=== PATIENT | female | born 1950 | race Caucasian/White ===

== ENCOUNTER → 2023-04-26 11:23 | Outpatient (REF) | payer OTHER, SELFPAY | LOC: WDC 11:23 | PROVIDERS: ATTENDING PHYSICIAN Internal Medicine | DX: Z12.31 Encounter for screening mammogram for malignant neoplasm of breast (principal) | CPT/HCPCS: 77063; 77067 ==

== ENCOUNTER → 2023-05-01 12:06 | Outpatient (REF) | payer OTHER, SELFPAY ==
[2023-05-01 13:04] VITALS: BP 136/69; BP_SYST 70
== END ==
LOC: RADI 12:06
PROVIDERS: ATTENDING PHYSICIAN Internal Medicine Endocrinology, Diabetes & Metabolism
DX: Q89.2 Congenital malformations of other endocrine glands (principal)
CPT/HCPCS: 88173; 10005

== ENCOUNTER → 2023-05-28 06:19 | Day surgery (SDC) | payer OTHER, SELFPAY ==
[2023-05-28 07:27] LABS: Glucose - Point of Care 127 mg/dl (70-99)
== END ==
LOC: GI 06:19
PROVIDERS: ATTENDING PHYSICIAN Internal Medicine Gastroenterology
DX: Z12.11 Encounter for screening for malignant neoplasm of colon (principal); Z86.010 Personal history of colon polyps; K64.8 Other hemorrhoids; K57.30 Diverticulosis of large intestine without perforation or abscess without bleeding
CPT/HCPCS: G0105; 82962

== ENCOUNTER → 2023-06-03 12:26 | Outpatient (REF) | payer OTHER, SELFPAY | LOC: HWRAD 12:26 | PROVIDERS: ATTENDING PHYSICIAN Internal Medicine Endocrinology, Diabetes & Metabolism; FAMILY PHYSICIAN Internal Medicine | DX: M81.0 Age-related osteoporosis without current pathological fracture (principal) | CPT/HCPCS: 77080 ==

== ENCOUNTER 2023-06-19 19:39 | Observation (INO) | payer OTHER, SELFPAY ==
[2023-06-19] VITALS (17 sets, daily range): BP systolic 128–172; BP diastolic 75–105; BMI 29.9; BMI 29.2
[2023-06-19 16:39] LABS: Glucose - Point of Care 205 mg/dl (70-99)
--- NOTE | 2023-06-19 16:50 | ED.CVA ---
History of Present Illness
General
Chief Complaint: CVA/TIA Symptoms
Source: patient
Exam Limitations: none
Time Seen by Provider: 06/19/23 16:50
Nursing documentation reviewed up to this point in time: agreed with
Onset of Stroke Symptoms
Onset of symptoms known: Yes
Date of onset of symptoms: 06/18/23
Travel History
Have you had any contact with someone who has COVID-19?: No
Do you have any symptoms of coronavirus? Fever > 100 degrees, chills, cough, shortness of breath, sore throat, loss of taste or smell, muscle aches, or headache?: No
History of Present Illness
History of Present Illness:
72 old female presents the emergency department complaining of double vision that occurred last night, difficulty speaking. She saw her neurologist, Dr. Tang.
Past History
Past History
ED Past Medical History: CVA, HTN, Hypercholesterolemia and Hypothyroidism
ED Past Surgical History: Orthopedic
Social History
Tobacco: Non-smoker
Alcohol: None
Drug: None
Personal:
Living: with family
Review of Systems
Review of Systems
Allergies reviewed?: Yes
All Other Systems: Not applicable
Constitutional: Reports no symptoms
EENT: Reports no symptoms
Respiratory: Reports no symptoms
Cardiac: Reports no symptoms
ABD/GI: Reports no symptoms
: Reports no symptoms
Musculoskeletal: Reports no symptoms
Skin: Reports no symptoms
Neurological: Reports other (Double vision, dysarthria)
Endocrine: Reports no symptoms
Hematologic/Lymphatic: Reports no symptoms
Psychiatric: Reports no symptoms
Phy Exam
Physical Exam
Physical Exam:
Physical Exam
General: no apparent distress, not acutely ill
Neck: supple. no meningeal signs. normal posterior pharynx
Heart: s1/s2 regular rate and rhythm, no murmur. equal radial
pulses.
HEENT: Pupils equal round reactive to light, EOMI
Lungs: no acute respiratory distress. clear bilaterally
Abdomen: normal bowel sounds. not tender. no CVAT
Neuro: alert and oriented. no focal neurological deficits cranial nerves II through XII intact
Skin: no rash
Psychiatric: well kept. interactive and cooperative
Extremities: no edema. no calf tenderness. negative homans. good distal pulses
Scores
NIH Stroke Score
Level of Consciousness: 0 - Alert
LOC Questions: 0-Answers both correctly
LOC Commands: 0-Performs both correctly
Best Horizontal Gaze: 0-Normal
Visual Khan: 0=Normal, no visual loss
Facial Palsy: 0=Normal, symmetrical
Motor - Right Arm: 0=No drift 10 seconds
Motor - Left Arm: 0=No drift 10 seconds
Motor - Right Le-No drift 5 seconds
Motor - Left Le-No drift 5 seconds
Limb Ataxia: 0-Absent
Sensation: 0-Normal
Best Language: 0-No aphasia
Dysarthria: 0-Normal
Extinction and Inattention: 0-No abnormality
Total Score:: 0
Course
Orders/Labs/Results
Orders:
Orders
06/19/23 16:47
Electrocardiogram (*1) Urgent
Reason for Study: Chest Pain
CT Head W/o Iv Contrast Urgent
Comment:
Reason For Exam: slurred speech
EKG- Treatment ONCE
06/19/23 16:49
Complete Blood Count/With Diff Urgent
Comprehensive Metabolic Panel Urgent
Prothrombin Time Urgent
Troponin I Urgent
06/19/23 18:33
Urinalysis Reflex To Culture Urgent
Date Specimen was Collected: 06/19/23
Time Specimen was Collected: 18:37
Aspirin Chewable [Low Strength Aspirin] 81 mg PO NOW STA
Abnormal Lab Results
0306/19/23 06/19/23
16:38 16:49 16:51
WBC 13.1 H 10^3/uL
(4.8-10.8)
Abs Immat Gran (auto) 0.1 H 10^3/uL
(0-0.05)
Absolute Neuts (auto) 10.0 H 10^3/uL
(1.4-6.5)
Absolute Monos (auto) 0.7 H 10^3/uL
(0.1-0.6)
Neutrophils % 76.7 H %
(42.2-75.2)
Lymphocytes % 16.7 L %
(20.5-51.1)
Sodium 134 L mmol/L
(135-145)
Carbon Dioxide 20 L mmol/L
(22-30)
Glucose 193 H mg/dl
(70-99)
POC Glucose 205 H mg/dl 201 H mg/dl
(70-99) (70-99)
06/19/23 16:49
06/19/23 16:49
Vital Signs
Initial and Last Documented VS:
Initial Vital Signs
Temp Pulse Resp BP Pulse Ox
98.0 F 91 14 172/105 95
06/19/23 16:34 06/19/23 16:34 06/19/23 16:34 06/19/23 16:34 06/19/23 16:34
Last Documented Vital Signs
Temp Pulse Resp BP Pulse Ox
98.0 F 79 16 138/77 97
06/19/23 16:34 06/19/23 19:00 06/19/23 19:00 06/19/23 19:00 06/19/23 19:00
MDM/Problems Addressed
Differential Diagnosis Includes:
Intracranial hemorrhage, TIA, CVA
MDM/Problems Addressed:
72-year-old female with dysarthria, resolved. Double vision, resolved. Suspect TIA. Admit to hospitalist. TNK not indicated.
Chronic conditions affecting care: HTN and Arrhythmia
Acute Exacerbation and/or Progression of Chronic Illness: HTN and Arrhythmia
*Radiology
Radiology exam reviewed: radiology read reviewed (CT head no acute findings)
*Pulse Oximetry
Patient hypoxic: no
*EKG
Interpreted by ED Provider?: Yes
EKG Intrepretation Date: 06/19/23
EKG Intrepretation Time: 16:50
Interpretation: abnormal
Comparison EKG: no comparison EKG present
Heart Rate: 86
Rate: normal
Rhythm: sinus
[place]: normal axis
Interval: normal interval
QRS Pattern: normal QRS
Ischemia: non-specific ST changes
*Processor Inspector Interpretation
Rate: normal
Interpretation: normal
Heart Rate: 84
Rhythm: sinus
*Critical Care Note
Total Time (30-74mins, 75-104mins- exclusive of procedures): Not Applicable
Data Reviewed
Prescriptions/Medications Considered But Not Given:
TNK not indicated
Patient Management
Social determinants of health affecting care: Living situation
Discussion with other providers: Hospitalist and Band Maker (Neurology, Dr. Painter)
Escalation/DeEscalation of care consider admission/obs:
Admit indicated
ED Attending Note
-
Portions of this chart may have been created with voice recognition software.� Occasional wrong word or��sound alike� substitutions may have occurred due to the inherent limitations of voice recognition software.
Discharge Plan
Departure
Patient Disposition: Admit
Date of Disposition: 06/19/23
Time of Disposition: 18:02
Admit to: Telemetry
Presentation/result/management discussed w/ accepting MD/DO: Hospitalist
Patient with high blood pressure during this ER visit?: Yes
Condition: Good
Discharge Problem:
TIA (transient ischemic attack)
Prescriptions:
No Action
Prolia 60 MG/ML syringe
60 mg SQ [id number]
Patient Comments:
06/19/2023, last dose was in March per pt.
atorvastatin 40 mg Tablet
40 mg PO DAILY
loperamide [Imodium] 2 mg Capsule
4 mg PO HSPRN PRN (Reason: diarrhea)
sulfamethoxazole-trimethoprim 800-160 mg Tablet
1 tab PO BID
Patient Comments:
06/19/2023, pt. filled this med on 06/17/2023 and is instructed to take one tablet BID for 8 days.
valsartan-hydrochlorothiazide 80-12.5 mg Tablet
1 tab PO DAILY
erythromycin 5 mg/gram (0.5 %) Ointment
1 applic LEFT EYE QID
Patient Comments:
06/19/2023, pt. filled this med. on 06/12/2023 and is instructed to apply to left eye QID for 7 days.
clobetasol 0.05 % Solution
1 applic TOPICAL BID PRN (Reason: skin condition)
escitalopram oxalate 10 mg Tablet
20 mg PO DAILY
bupropion HCl 150 mg Tablet Extended Release 24 Hr
450 mg PO DAILY
pregabalin 150 mg Capsule
150 mg PO BID
cholecalciferol (vitamin D3) 50 mcg (2,000 unit) Tablet
50 mcg PO DAILY
Centrum Silver 400-250 mcg Tablet,Chewable
4 tab PO QPM
Jardiance 25 mg Tablet
25 mg PO DAILY
clopidogrel 75 MG tablet
75 mg PO DAILY
pantoprazole 40 MG tablet,delayed release (DR/EC)
40 mg PO DAILY
levothyroxine 125 MCG tablet
125 mcg PO DAILY
Interventions
Interventions:
*Risk Screen - Suicide Last Done: 06/19/23 16:35
*General Assessment Last Done: 06/19/23 16:35
*Neglect/Abuse Screening Last Done: 06/19/23 16:35
*ED COVID-19 Vaccine History Last Done: 06/19/23 16:50
ED- Cardiac Assessment Last Done: 06/19/23 16:51
ED- Neurological Assessment Last Done: 06/19/23 16:35
ED- Pulmonary Assessment Last Done: 06/19/23 16:51
ED Swallowing Screen Last Done: 06/19/23 16:51
Discharge Date and Time
Print Language: SWEDISH
[2023-06-19 16:53] LABS: Glucose - Point of Care 201 mg/dl (70-99)
[2023-06-19 17:07] LABS: % Basophils 0.6 % (0-2); % Eosinophils 0.6 % (0-6); % Immature Granulocytes 0.4 % (0-0.5); % Lymphocytes 16.7 % (20.5-51.1); % Neutrophils 76.7 % (42.2-75.2); Absolute Basophils 0.1 10^3/uL (0-0.2); Absolute Eosinophils 0.1 10^3/uL (0-0.7); Absolute Immature Granulocytes 0.1 10^3/uL (0-0.05); Absolute Lymphocytes 2.2 10^3/uL (1.2-3.4); Absolute Monocytes 0.7 10^3/uL (0.1-0.6); Hematocrit 42.8 % (37.0-47.0); Hemoglobin 15.3 g/dL (12.0-16.0); Mean Corp Hgb Conc. 35.7 g/dL (33.0-37.0); Mean Corpuscular Hgb 29.3 pg (27.0-31.0); Mean Platelet Volume 9.7 fL (7.4-10.4); Nucleated Red Blood Cells % 0 %; Platelet Count 376 10^3/uL (130-400); Red Blood Cell Count 5.22 10^6/uL (4.20-5.40); Red Cell Dist. Width 13.5 % (11.5-14.5); White Blood Cell Count 13.1 10^3/uL (4.8-10.8)
[2023-06-19 17:16] LABS: INR 1.04; PT 13.6 Sec (11.4-14.6)
[2023-06-19 17:26] LABS: ALT (SGPT) 26 U/L (0-35); AST (SGOT) 32 U/L (14-36); Albumin 4.7 g/dl (3.5-5.0); Alkaline Phosphatase 69 U/L (38-126); Blood Urea Nitrogen 14 mg/dl (7-17); Calcium 10.1 mg/dl (8.4-10.2); Carbon Dioxide 20 mmol/L (22-30); Chloride 102 mmol/L (98-107); Estimated Creatinine Clearance 71 ml/min; Glucose 193 mg/dl (70-99); Potassium 3.8 mmol/L (3.5-5.1); Sodium 134 mmol/L (135-145); Total Bilirubin 0.7 mg/dl (0.2-1.3); Total Protein 7.7 g/dl (6.3-8.2); eGFR > 60.00
[2023-06-19 17:29] LABS: Troponin I < 0.012 ng/ml
[2023-06-19] MEDS: LOW STRENGTH ASPIRIN 81 MG PO (18:39)
--- NOTE | 2023-06-19 18:39 | W.PN.UPDATE ---
Update Note
Progress Note Update
This note serves as an addendum to the H&P by Ade Farr on 06/18.
72 yo f w/ pmhx of prior left tempo-parietal cva, hx pfo repair, on Plavix, HTN, HLD, Hypothyroidism, presenting for intermittent dysarthria since last night. Also with diplopia. Patient had mild URI symptoms since colonoscopy a few weeks ago. UTI
symptoms last week started on abx with no symptoms at this time. Sent in by Dr. Tang. Blood pressure 154/83, RR 11, pulse 83, afebrile. �White count 13.1, sodium 134, head CT with 3 cm infarct in the left temporoparietal junction, mild to
moderate diffuse cortical and cerebral atrophy.� Plan�PT/OT/ST, MRI/MRA brain.� Neuro consult.� echo with bubble study.� May need JORGE L.� Hemoglobin A1c, LDL, increase statin to Crestor if LDL is not in goal.� Permissive hypertension. UA to rule out
UTI
--- NOTE | 2023-06-19 19:15 | HPS.HSE ---
Family Physician
-
Family Physician: Radha Nesbitt
Chief Complaint
-
Double Vision and Slurred Speech
History of Present Illness
Patient is a 72-year-old female past medical history of prior left temporal parietal CVA, PFO s/p ASD closure, hypertension, hyperlipidemia and diabetes who presents with double vision and slurred speech. Patient reports she woke this morning and
noticed double vision it. She attributed this initially to a recent 'eye infection'. She saw her physician today who noted her blood pressure to be elevated and her speech to be slurred and she was sent to the emergency department for evaluation.
She denies any focal numbness, tingling or weakness. Patient also reports she started with a urinary tract infection about a week ago. She initially was on ciprofloxacin, and then transition to Bactrim. She notes since changing antibiotics her
symptoms have improved.
Medical History
Past Medical History
Past Medical History: Reports Other
Additional Past Medical History:
Left Temporoparietal CVA
PFO s/p ASD Closure
Essential Hypertension
Hyperlipidemia
Diabetes Mellitus
Hypothyroidism
Depression
GERD
Past Surgical History: Reports Other
Additional Past Surgical History:
Gastric Bypass
Abdominoplasty
Mammoplasty
Shoulder Surgery
Left Total Knee Replacement
Left Femur Fracture Repair
Social History
Tobacco: Non-smoker
Alcohol: Occasional
Family History
Family History: Not pertinent
Allergies / Home Medications
Allergies reflects when Allergies were last updated in [facility].
Home Medications with original date entered in [facility]
Allergy/Medication List:
Allergies
Allergy/AdvReac Type Severity Reaction Status Date / Time
adhesive tape Allergy Rash Verified 04/30/23 13:50
Home Medications
clopidogrel 75 mg tablet 75 mg PO DAILY 05/10/18
levothyroxine 125 mcg tablet 125 mcg PO DAILY 05/10/18
pantoprazole 40 mg tablet,delayed release 40 mg PO DAILY 05/10/18
denosumab 60 mg/mL subcutaneous syringe (Prolia) 60 mg SQ [id number] 04/18/20
atorvastatin 40 mg tablet 40 mg PO DAILY 06/19/23
bupropion HCl 150 mg 24 hr tablet, extended release 450 mg PO DAILY 06/19/23
cholecalciferol (vitamin D3) 50 mcg (2,000 unit) tablet 50 mcg PO DAILY 06/19/23
clobetasol 0.05 % scalp solution 1 applic topical BID PRN skin condition 06/19/23
empagliflozin 25 mg tablet (Jardiance) 25 mg PO DAILY 06/19/23
erythromycin 5 mg/gram (0.5 %) eye ointment 1 applic LEFT EYE QID 06/19/23
escitalopram oxalate 10 mg tablet 20 mg PO DAILY 06/19/23
loperamide 2 mg capsule 4 mg PO HSPRN PRN diarrhea 06/19/23
multivit with min-folic acid-lutein 400 mcg-250 mcg chewable tablet (Centrum Silver) 4 tab PO QPM 06/19/23
pregabalin 150 mg capsule 150 mg PO BID 06/19/23
sulfamethoxazole 800 mg-trimethoprim 160 mg tablet 1 tab PO BID 06/19/23
valsartan 80 mg-hydrochlorothiazide 12.5 mg tablet 1 tab PO DAILY 06/19/23
Review of Systems
-
A 12 point ROS was completed and negative except as noted: Yes
Constitutional: Denies Fever or Chills
Respiratory: Denies Cough or Trouble Breathing
Cardiac: Denies Chest Pain or Palpitations
Abdomen/GI: Denies Abdominal Pain, Nausea, Vomiting or Diarrhea
Physical Exam
Vital Signs
Vital Signs
Temp Pulse Resp BP Pulse Ox
98.0 F 79 16 138/77 97
06/19/23 16:34 06/19/23 19:00 06/19/23 19:00 06/19/23 19:00 06/19/23 19:00
Physical Exam
General: Comfortable and Conversant
HEENT: Anicteric and Moist mucous membranes
Respiratory: Clear and Non Labored Respirations
Cardiac: S1/S2 and Regular Rhythm
GI: Soft and Non Tender
Rectal: Deferred by Provider
Skin: Warm and Dry
Neuro: Awake, Alert, Oriented, No Motor Deficits and Slurred Speech; No Facial Droop
Psych: Calm
Laboratory Results
-
06/19/23 16:49
06/19/23 16:49
Laboratory Results
PT 13.6 Sec (11.4-14.6) 06/19/23 16:49
INR 1.04 06/19/23 16:49
Total Bilirubin 0.7 mg/dl (0.2-1.3) 06/19/23 16:49
AST 32 U/L (14-36) 06/19/23 16:49
ALT 26 U/L (0-35) 06/19/23 16:49
Alkaline Phosphatase 69 U/L (38-126) 06/19/23 16:49
Troponin I < 0.012 ng/ml 06/19/23 16:49
Data Reviewed
-
CT Scan: Report Reviewed by me
Lab Data: Labs Reviewed by me
Impression/Plan
-
Double Vision and Slurred Speech, possible TIA/CVA
-Consult Neurology
-Add aspirin - Continue Plavix
-Check Brain MRI with Head/Neck MRA
-Check Hgba1c and Lipid Panel
-Monitor neuro-checks
Recent Urinary Tract Infection
-Continue Bactrim
-Check repeat urinalysis/urine culture
Essential Hypertension, allow for permissive hypertension for 24 hours post onset of symptoms
-Resume valsartan in AM
-Hold HCTZ
Hyperlipidemia
-Continue atorvastatin
Diabetes Mellitus, Type II
-Continue Jardiance
Hypothyroidism
-Continue levothyroxine
Depression
-Continue bupropion and escitalopram
GERD
-Continue Protonix
Hx Left Temporoparietal CVA
Hx PFO s/p ASD Closure
DVT proph: SCDs
Code Status: Full Code
[2023-06-19 20:24] LABS: Urine Albumin Negative (Neg - Trace); Urine Bilirubin Negative (Negative); Urine Character Clear (Clear); Urine Color Yellow; Urine Glucose 3+ (Negative); Urine Ketone 1+ (Negative); Urine Leukocyte Trace (Negative); Urine Nitrite Negative (Negative); Urine Occult Blood Negative (Negative); Urine Urobilinogen Negative (Neg - 1+)
[2023-06-19 20:31] LABS: Urine Squamous Cell 0-2 /LPF (Few); Urine Urothelial Cell 0-2 /LPF (FEW)
[2023-06-19 20:32] LABS: Urine Bacteria Few (Negative); Urine Red Blood Cell 0-2 /HPF (0-2)
[2023-06-19] MEDS: LYRICA 150 MG PO (21:45)
[2023-06-19] MEDS: BACTRIM DS 800 MG/160 MG 1 TABLET PO (21:45)
[2023-06-20] VITALS (7 sets, daily range): BP systolic 105–141; BP diastolic 63–85; PULSE 69; O2SAT 97
[2023-06-20] MEDS: TYLENOL 650 MG PO (01:25)
--- NOTE | 2023-06-20 02:51 | PTCARENOTE ---
Patient complaining of head pressure and didn`t improve with Tylenol. Patient then rang again and stated that she had chest pressure. Vitals and EKG obtained. [employer] Ronna made aware. Triponins ordered. NIH scale remains at 0.
[2023-06-20 03:11] LABS: Hematocrit 38.5 % (37.0-47.0); Hemoglobin 13.8 g/dL (12.0-16.0); Mean Corp Hgb Conc. 35.8 g/dL (33.0-37.0); Mean Corpuscular Hgb 29.1 pg (27.0-31.0); Mean Corpuscular Volume 81.2 fL (81.0-99.0); Mean Platelet Volume 9.8 fL (7.4-10.4); Platelet Count 299 10^3/uL (130-400); Red Blood Cell Count 4.74 10^6/uL (4.20-5.40); Red Cell Dist. Width 13.6 % (11.5-14.5); White Blood Cell Count 9.6 10^3/uL (4.8-10.8)
[2023-06-20 03:27] LABS: Blood Urea Nitrogen 13 mg/dl (7-17); Calcium 9.2 mg/dl (8.4-10.2); Carbon Dioxide 20 mmol/L (22-30); Chloride 104 mmol/L (98-107); Estimated Creatinine Clearance 68 ml/min; Glucose 212 mg/dl (70-99); HDL Cholesterol 55 mg/dl; LDL Cholesterol, Calculated 49 mg/dl; Potassium 2.9 mmol/L (3.5-5.1); Sodium 134 mmol/L (135-145); Total Cholesterol 121 mg/dl (50-199); Triglyceride 87 mg/dl (10-149); Very Low Density Lipoprotein 17 mg/dl (0-30); eGFR > 60.00
[2023-06-20 03:38] LABS: Troponin I < 0.012 ng/ml
[2023-06-20] MEDS: SYNTHROID 125 MCG PO (06:03)
--- NOTE | 2023-06-20 08:12 | CON.NEURO4 ---
Addendum entered and electronically signed by Burak Villalobos MD 06/20/23 12:50:
I saw and evaluated the patient I reviewed the note by Leonarda Cotton agree the findings the following comments:
72-year-old woman with a past no history of previous left-sided ischemic stroke status post PFO closure, hypertension, hyperlipidemia, rhy-[id number] diabetes mellitus, previous significant depression requiring ECT presenting to hospital
because of diplopia as well as expressive speech difficulty starting last night.
Patient describes having had recent urinary tract infection was treated for this with antibiotics as well as a left infection treated with topical antibiotics. Reports yesterday morning waking up with new onset double vision she was not sure if
this was binocular or monocular and has since improved. She had expressive speech difficulty and made call to neurology office and was referred to the ER. Patient had had scheduled appoint with neurology due to the history of stroke as well as
concerns for cognitive problems. Currently she feels unwell but does feel like the diplopia and speech abnormality seem to have resolved. She denies any history of significant head photophobia phonophobia nausea or vomiting but does describe some
more frequent headaches recently but not most days of the week.
She is compliant with Plavix since her history of ischemic stroke and had PFO closure. This occurred around 1996.
Neurologic examination shows no abnormalities of cranial nerves, motor function and coordination normal, memory recall 3/3 after 5 minutes
Assessment: Concern for TIA, history of stroke with PFO closure, multiple vascular risk factors for stroke.
Treatment
-DAPT therapy
-Goal normotension
-IV thiamine 100 mg once daily
-Neurologic checks and NIH scales
-MRI of brain MRA of head and neck
-Speech therapy
-Add on ammonia and Vitamin B1
Will follow
Original Note:
Documented by User: Leonarda Aguilar NP 06/20/23 12:12
Consultation - Neurology 4
-
CONSULTING PHYSICIAN: Henrry Villalobos MD
REFERRING PHYSICIAN: Hospitalists/Ade Farr PA-C
DICTATED BY: LELIA Franco
DATE/TIME OF REQUEST: 06/19/23
DATE/TIME OF CONSULTATION: 06/20/23
Reason for Consultation: Diplopia, dysarthria
History of Present Illness:
This is a 72-year-old female with a PMH of cryptogenic left temporoparietal CVA in 1996 s/p PFO closure, and catatonic depression s/p ECT in 1998 who has presented to the hospital on 06/19/23 with report of diplopia and dysarthria. Patient reports
that earlier this month 05/2023 she had a colonoscopy and developed URI symptoms afterwards. Then one week ago she started having dysuria and frequency and was started on antibiotics for a UTI. Additionally, her left eye has had discomfort for about
one week and she was prescribed antibiotic ointment for the eye.
Yesterday morning (06/19/23), she reports waking up with new onset diplopia. Her vision was blurry when trying to look at written words, and she was seeing two of everything, side by side. By the afternoon, she noticed that her speech sounded
slurred and she was experiencing some chest discomfort. She had a scheduled appointment with Neurology Dr. Tang later in the afternoon (who she is newly followed by for her stroke history, right hand neuropathy, and memory issues), and she
decided to wait to seek medical attention until her appointment. On arrival to the Neurology office she was referred immediately to the ER. On arrival to the ER, CT head was obtained and is negative for any acute abnormalities. Blood pressure was
172/105. WBC 13.1, glucose 193. NIHSS was 0 and she was not a candidate for TNK/IAT due to NIHSS <6, no evidence of LVO, and outside of time window. Patient is taking Plavix 75mg daily as an outpatient for stroke prevention, aspirin 81mg daily was
added in the ER. Today, patient reports that her diplopia and dysarthria have resolved but her vision still seems slightly blurry and she has some left eye discomfort. She denies any headache, dizziness, speech/swallow difficulty, new
numbness/weakness, chest pain, palpitations, and shortness of breath. She reports years of noticing that her memory is worsening, and chronic right hand neuropathy/weakness s/p right elbow fracture.
From outpatient encounter with Dr. Tang on 05/03/23:
'72-year-old female presents for evaluation for longstanding history of stroke as well as neuropathic pain. She states that at age 46 she had an episode where 'everything went black and she could not see anything or move anything.' She went to her
PCP. She was later found to have what she thinks was a left temporal stroke as well as a PFO diagnosed at [facility] in [place]. This was in 1996. She does not have any of these records. She was part of a clinical trial where her
PFO was closed. In retrospect she had several TIAs when she was younger as well. She has had no episodes of stroke or TIA since her PFO was closed (the latter which was in 2001 at [facility]). She does not think she ever had a hypercoagulable workup
done. In terms of residual deficits, she feels that she may have some very minor memory issues since her stroke. She occasionally has some very minor aphasia and feels that she 'cannot talk as fast as she used to.' She is also undergone ECT for
severe depression and does not know if this is affected her memory as well. She states that she had some A-fib when she was younger and says that she thinks this coincided with going off of Plavix which she was subsequently put back on. She follows
actively with Dr. Brooks in cardiology.�������
Her other issue is neuropathic pain in her right hand. She states that she shattered her elbow in 2011. She says that it had to be rebuilt. She has had weakness and pain in her right hand since then. She is currently on Lyrica and wonders if it can
be increased.'
Past Medical History: Left temporoparietal cryptogenic CVA 1996, HTN, HLD, NIDDM, hypothyroidism, mitral regurgitation, catatonic depression s/p ECT, iron deficiency anemia, diverticulosis, DDD, asthma, uterine prolapse, obesity, GERD, right elbow
fracture with subsequent right hand neuropathy
Surgical History: PFO closure via CardioSEAL 2002, gastric bypass and revision, x2, breast augmentation, nasal polypectomy, bladder suspension surgery, b/l cataract removal, abdominoplasty, R breast biopsy, L TKR, elbow repair, hernia
repair, LINQ implanted in 2016
Family History: Reviewed and noncontributory,
Social History: Denies any tobacco, alcohol, and illicit drug use.
Allergies: Adhesive tape.
Home Medications: See below.
Review of Symptoms:
Patient denies any fever, headache, chest pain, shortness of breath, GI or symptoms.
�Per the HPI.�All systems are reviewed negative except above.
Physical Exam:
The patient is afebrile, abdomen is nondistended, breathing is unlabored, skin is warm and dry, no edema.
NIH Stroke Scale:
I performed the NIH stroke scale on the patient on 06/20/23 at 1100. The patient scored 0 points on the NIH stroke scale assessment, which were assigned as follows: See below.
Neurologic Examination:
The patient is awake, alert and oriented x 3, poor historian. 2/3 word recall, 3/3 with prompting. Named 11 'B' words. She is able to follow commands and answer questions appropriately. There is no aphasia or dysarthria. On cranial nerve
assessment, pupils are 3 mm bilateral, round and reactive to light and accommodation. Visual khan are full. Extraocular movements are intact. Facial sensations are intact and bilaterally symmetrical, there is no facial asymmetry. Hearing is intact
bilaterally to normal conversation volume. Tongue palate and uvula are midline. Sternocleidomastoid strengths are full bilaterally. Motor strengths are 5/5 bilateral upper and lower extremities on medical research [place] scale. There is no drift or
involuntary movement noted. Deep tendon reflexes are 2+ bilateral upper and lower extremities and Babinski is absent bilaterally. There was no extinction noted on double simultaneous stimulation. Coordination is intact by finger to nose bilaterally.
Lab Results: See below.
Neuro Imaging:
1. CT Head 06/18/23: No acute abnormalities. 3 cm infarct in the left temporoparietal junction. Mild- moderate diffuse cortical and cerebellar atrophy.
Differentials for the patient's presentation include:
1. Acute ischemic stroke possibly producing vision changes and dysarthria.
2. TME or hypertensive encephalopathy possibly contributing to symptoms.
3. Chronic cognitive impairment possibly related to ECT therapy.
Patient has the following risk factors for their symptoms: Hx stroke, HTN, HLD, age, hypothyroidism, recent infections
IV Tenecteplase/IAT candidacy: Not a candidate for TNK/IAT due to NIHSS <6, no evidence of LVO, and outside of time window.
Recommendations:
-Continue DAPT with Plavix 75mg and Aspirin 81mg daily for 21 days.
-Goal normotension as it is greater than 24 hours from symptom onset.
-MRI brain, MRA head/neck ordered/pending.
-TTE ordered/pending.
-LDL goal <70. LDL is 49. Okay to continue home atorvastatin 40mg daily as LDL is at goal.
-Goal normoglycemia, hbA1c is 7.1.
-Checking blood work for metabolic abnormalities, see orders.
-NIHSS and neurological checks per unit guidelines.
-Provide patient/family with a stroke education packet.
-PT/OT/ST evaluations.
-DVT prophylaxis.
Neurology will follow.
Discussed patient care with: Dr. Villalobos, the patient, patient's spouse
Vital Signs and Labs
-
Vital Signs and Labs:
Vital Signs
Temp Pulse Resp BP Pulse Ox
98 F 78 16 134/85 95
06/20/23 11:27 06/20/23 11:27 06/20/23 11:27 06/20/23 11:27 06/20/23 11:27
Lab Results
06/20/23 03:05
06/20/23 03:05
PT 13.6 Sec (11.4-14.6) 06/19/23 16:49
INR 1.04 06/19/23 16:49
Sodium 134 mmol/L (135-145) L 06/20/23 03:05
Potassium 2.9 mmol/L (3.5-5.1) L 06/20/23 03:05
BUN 13 mg/dl (7-17) 06/20/23 03:05
Glucose 212 mg/dl (70-99) H 06/20/23 03:05
Calcium 9.2 mg/dl (8.4-10.2) 06/20/23 03:05
LDL Cholesterol, Calc 49 mg/dl 06/20/23 03:05
Medications
-
Active Medications
Generic Name Dose Route Start Last Admin
Trade Name Freq PRN Reason Stop Dose Admin
Acetaminophen 650 mg 06/19/23 20:32
Acetaminophen 650 Mg Rectal Suppository RECTAL 07/17/23 20:31
Q4HPRN PRN
GARDUNO, mild pain, or temp >100.4F
Acetaminophen 650 mg 06/19/23 20:32 06/20/23 01:25
Acetaminophen 325 Mg Tablet PO 07/17/23 20:31 650 mg
Q4HPRN PRN Administration
GARDUNO, mild pain, or temp >100.4F
Aspirin 81 mg 06/20/23 08:00 06/20/23 09:45
Aspirin 81 Mg Chewable Tablet PO 07/18/23 07:59 81 mg
DAILY RELL Administration
Atorvastatin Calcium 40 mg 06/20/23 08:00 06/20/23 09:44
Atorvastatin (Lipitor) 40 Mg Tablet PO 07/18/23 07:59 40 mg
DAILY RELL Administration
Bupropion HCl 450 mg 06/20/23 08:00 06/20/23 09:44
Bupropion (24hr) Extended Release 150 Mg Tablet PO 07/18/23 07:59 450 mg
DAILY RELL Administration
Cholecalciferol 50 mcg 06/20/23 08:00 06/20/23 09:45
Cholecalciferol (Vitamin D3) 50 Mcg Tablet (2,000 Units) PO 07/18/23 07:59 50 mcg
DAILY RELL Administration
Clopidogrel Bisulfate 75 mg 06/20/23 08:00 06/20/23 09:44
Clopidogrel 75 Mg Tablet PO 07/18/23 07:59 75 mg
DAILY RELL Administration
Dextrose 12.5 grams 06/19/23 20:32
Dextrose 50% (0.5 Grams/Ml) 50 Ml Syringe IV 07/17/23 20:31
[id number] PRN
hypoglycemia
Protocol
Empagliflozin 25 mg 06/20/23 08:00 06/20/23 09:45
Empagliflozin (Jardiance) 25 Mg Tablet PO 07/18/23 07:59 25 mg
DAILY RELL Administration
Escitalopram Oxalate 20 mg 06/20/23 08:00 06/20/23 09:44
Escitalopram 20 Mg Tablet PO 07/18/23 07:59 20 mg
DAILY RELL Administration
Glucagon 1 mg 06/19/23 20:32
Glucagon 1 Mg Vial IM 07/17/23 20:31
PRN PRN
hypoglycemia
Protocol
Insulin Aspart 0 units 06/20/23 07:30 06/20/23 11:31
Insulin Aspart Low Resistance 300 Units/3 Ml Pen.Injctr SC 07/18/23 07:29 1 units
AC RELL Administration
Protocol
Levothyroxine Sodium 125 mcg 06/20/23 07:00 06/20/23 06:03
Levothyroxine 125 Mcg Tablet PO 07/18/23 06:59 125 mcg
DAILY AT 0700 RELL Administration
Pantoprazole Sodium 40 mg 06/20/23 08:00 06/20/23 09:45
Pantoprazole 40 Mg Delayed Release Tablet PO 07/18/23 07:59 40 mg
DAILY RELL Administration
Pregabalin 150 mg 06/19/23 22:00 06/20/23 09:44
Pregabalin 75 Mg Capsule PO 07/17/23 21:59 150 mg
BID RELL Administration
Sodium Chloride 0 flush 06/19/23 22:00
Sodium Chloride 0.9% (Flush) Syringe IV 07/17/23 21:59
PER PROTOCOL RELL
Trimethoprim/Sulfamethoxazole 1 tablet 06/19/23 20:32 06/20/23 09:45
Sulfamethoxazole (800 Mg)/Trimethoprim (160 Mg) Tablet PO 1 tablet
BID RELL Administration
Valsartan 80 mg 06/20/23 08:00 06/20/23 09:43
Valsartan 80 Mg Tablet PO 07/18/23 07:59 80 mg
DAILY RELL Administration
Home Medications
�Medication �Instructions �Recorded
clopidogrel 75 mg tablet 75 mg PO DAILY Heart 05/10/18
Disease/Condition
levothyroxine 125 mcg tablet 125 mcg PO DAILY Thyroid 05/10/18
pantoprazole 40 mg tablet,delayed 40 mg PO DAILY Gastrointestinal 05/10/18
release Issue
denosumab 60 mg/mL subcutaneous 60 mg SQ [id number] BONE 04/18/20
syringe (Prolia)
atorvastatin 40 mg tablet 40 mg PO DAILY High Cholesterol 06/19/23
bupropion HCl 150 mg 24 hr tablet, 450 mg PO DAILY Mental 06/19/23
extended release Health/Anxiety
cholecalciferol (vitamin D3) 50 50 mcg PO DAILY Supplement 06/19/23
mcg (2,000 unit) tablet
clobetasol 0.05 % scalp solution 1 applic topical BID PRN skin 06/19/23
condition
empagliflozin 25 mg tablet 25 mg PO DAILY Diabetes 06/19/23
(Jardiance)
erythromycin 5 mg/gram (0.5 %) eye 1 applic LEFT EYE QID Eye Condition 06/19/23
ointment
escitalopram oxalate 10 mg tablet 20 mg PO DAILY Mental 06/19/23
Health/Anxiety
loperamide 2 mg capsule 4 mg PO HSPRN PRN diarrhea 06/19/23
multivit with min-folic 4 tab PO QPM Supplement 06/19/23
acid-lutein 400 mcg-250 mcg
chewable tablet (Centrum Silver)
pregabalin 150 mg capsule 150 mg PO BID Neurological 06/19/23
Condition
sulfamethoxazole 800 1 tab PO BID Infection 06/19/23
mg-trimethoprim 160 mg tablet
valsartan 80 1 tab PO DAILY Blood Pressure 06/19/23
mg-hydrochlorothiazide 12.5 mg
tablet
NIH Stroke Score
Subsequent NIH Scale
Date of Subsequent NIH Scale: 06/20/23
Time of Subsequent NIH Scale: 11:00
NIH Stroke Score
Level of Consciousness: 0 - Alert
LOC Questions: 0-Answers both correctly
LOC Commands: 0-Performs both correctly
Best Horizontal Gaze: 0-Normal
Visual Khan: 0=Normal, no visual loss
Facial Palsy: 0=Normal, symmetrical
Motor - Right Arm: 0=No drift 10 seconds
Motor - Left Arm: 0=No drift 10 seconds
Motor - Right Le-No drift 5 seconds
Motor - Left Le-No drift 5 seconds
Limb Ataxia: 0-Absent
Sensation: 0-Normal
Best Language: 0-No aphasia
Dysarthria: 0-Normal
Extinction and Inattention: 0-No abnormality
Total Score:: 0

Documented by User: Burak Villalobos MD 06/20/23 12:45
NIH Stroke Score
NIH Stroke Score
Total Score:: 0
[2023-06-20 08:44] LABS: Glycohemoglobin (HgbA1c) 7.1 % (4.0-5.6)
--- NOTE | 2023-06-20 09:19 | PTCARENOTE ---
Pt in Cardiac Services for Echo/ Bubble Study. Procedure completed per protocol with aseptic technique. Pt tolerated procedure well, no change in status. Left median antecubital IV site utilized, site clear, flushed easily pre and post procedure.
[2023-06-20] MEDS: DIOVAN 80 MG PO (09:43)
[2023-06-20] MEDS: LEXAPRO 20 MG PO (09:44)
[2023-06-20] MEDS: WELLBUTRIN XL (24 hour extended release) 450 MG PO (09:44)
[2023-06-20] MEDS: LIPITOR 40 MG PO (09:44)
[2023-06-20] MEDS: LYRICA 150 MG PO ×2 (09:44→19:56)
[2023-06-20] MEDS: PLAVIX 75 MG PO (09:44)
[2023-06-20] MEDS: VITAMIN D3 (cholecalciferol) 50 MCG PO (09:45)
[2023-06-20] MEDS: BACTRIM DS 800 MG/160 MG 1 TABLET PO ×2 (09:45→19:56)
[2023-06-20] MEDS: LOW STRENGTH ASPIRIN 81 MG PO (09:45)
[2023-06-20] MEDS: PROTONIX 40 MG PO (09:45)
[2023-06-20] MEDS: JARDIANCE 25 MG PO (09:45)
[2023-06-20] MEDS: KCL ELIXIR 40 MEQ PO ×2 (09:47→11:52)
[2023-06-20 10:02] LABS: Glucose - Point of Care 184 mg/dl (70-99)
[2023-06-20] MEDS: NOVOLOG FLEXPEN-LOW RESISTANCE 1 UNITS SC (11:31)
--- NOTE | 2023-06-20 12:29 | PTOTSP ---
Speech Language Pathology
Pt seen for clinical bedside swallow evaluation. P.O. trials of puree, regular solids, and thin liquids provided. Slightly prolonged mastication of regular solids noted. Question whether related to pt anxiety regarding swallow. Intermittent
change in vocal quality to strained quality post P.O. intake. Pt also reporting globus sensation above level of sternal notch with regular solids, which was alleviated with liquid wash. Also seen for med pass with meds whole with liquid.
Intermittent difficulty noted with coordinating swallow initiation. Change in vocal quality again intermittently noted. Cough x1. Provided last pill whole in puree.
Recommend:
(1) VSE
(2) Downgrade to IDDSI Level 6 (soft/bite-sized) and thin liquids pending VSE
(3) Meds whole in puree pending VSE
(4) [employer] to continue to follow
[2023-06-20] MEDS: THIAMINE INJECTION 100 MG IV (13:06)
[2023-06-20 13:09] LABS: COVID-19 Antigen Negative (Negative)
--- NOTE | 2023-06-20 13:12 | W.PN.HOSP.TC ---
Today's Communication/Plan
-
mri/mra
vse
asa, plavix
Assessment / Plan
Assessment / Plan
Physical Exam
General: Comfortable and Conversant; anxious
HEENT: Anicteric and Moist mucous membranes
Respiratory: Clear and Non Labored Respirations
Cardiac: S1/S2 and Regular Rhythm
GI: Soft and Non Tender
Rectal: Deferred by Provider
Skin: Warm and Dry
Neuro: Awake, Alert, Oriented, No Motor Deficits and Slurred Speech; No Facial Droop
Psych: Calm
Double Vision and Slurred Speech, possible TIA/CVA
-Consult Neurology
-Add aspirin - Continue Plavix
-Check Brain MRI with Head/Neck MRA
-Check Hgba1c - 7.1 and LDL 49
-Monitor neuro-checks
-F/u ECHO
-F/u TSH w/ reflex freet4
#URI symptoms
-f/u covid, flu
#Dysphagia
-VSE ordered
-ST
Recent Urinary Tract Infection
-Continue Bactrim
-ua negative
#Hypokalemia
-monitor and replete
Essential Hypertension, allow for permissive hypertension for 24 hours post onset of symptoms
-Resume valsartan in AM
-Hold HCTZ
Hyperlipidemia
-Continue atorvastatin
Diabetes Mellitus, Type II
-Continue Jardiance
Hypothyroidism
-Continue levothyroxine
Depression
-Continue bupropion and escitalopram
GERD
-Continue Protonix
Hx Left Temporoparietal CVA
Hx PFO s/p ASD Closure
DVT proph: HSQ
Code Status: Full Code
Anticipated Discharge: 24 - 48 hours
Subjective/Interval History
-
Date of Service: June 20, 2023
nervous but improved from yesterday
Objective Data
-
Labs:
Laboratory Results
06/20/23
03:05
WBC 9.6
Hgb 13.8
Hct 38.5
Plt Count 299 D
Sodium 134 L
Potassium 2.9 L
Chloride 104
Carbon Dioxide 20 L
BUN 13
Creatinine 0.8
Glucose 212 H
Calcium 9.2
Vital Signs:
Vital Signs
Temp Pulse Resp BP Pulse Ox
98 F 78 16 134/85 95
06/20/23 11:27 06/20/23 11:27 06/20/23 11:27 06/20/23 11:27 06/20/23 11:27
Review of Systems
-
History Source: Patient
All other systems: Not reviewed unless documented
Data Reviewed
-
CT Scan: Image personally visualized and interpreted and Report Reviewed by me
Labs: Labs Reviewed by me
[2023-06-20 13:18] LABS: TSH Reflex To Free T4 2.19 uIU/ml (0.47-4.68)
[2023-06-20 13:22] LABS: Ferritin 42.6 ng/ml (11.1-264.0)
[2023-06-20 13:22] LABS: Ammonia < 9 umol/L (9-30)
--- NOTE | 2023-06-20 13:30 | CM ---
met with patient and at bedside.patient lives with her spouse in house with 3 steps to enter,her bed and bath is on the second level,she amb i ,is I with her adl's.she has a rw in house but does not use it.dr howard is her pcp and she gets
her meds from [facility] in [place].patient has had a vn after ortho surgery but has never has been in ip rehab.
patient is adm with cva symptoms.she is for an mri/mra head patient has declined home care but cm will continue to follow patient.
plan is home with no needs vs home care.
[2023-06-20 13:53] LABS: Folate 11.8 ng/ml (2.76-20); Vitamin B12 > 1000 pg/ml (239-931)
[2023-06-20 14:07] LABS: Glucose - Point of Care 125 mg/dl (70-99)
[2023-06-20] MEDS: NOVOLOG FLEXPEN-LOW RESISTANCE SC ×2 (14:10→17:43)
[2023-06-20] MEDS: HEPARIN 5000 UNITS SC ×2 (15:46→23:10)
[2023-06-20 17:39] LABS: Glucose - Point of Care 109 mg/dl (70-99)
[2023-06-20 21:05] LABS: Hepatitis C Antibody Negative (Negative)
[2023-06-20 21:10] LABS: Glucose - Point of Care 111 mg/dl (70-99)
[2023-06-21 03:11] VITALS: BP 121/66
[2023-06-21] MEDS: SYNTHROID 125 MCG PO (06:04)
--- NOTE | 2023-06-21 07:27 | W.PN.NEURO.1 ---
Today's Communication / Plan
-
-Would treat as possible TIA given her stroke risk factors although duration seems a bit too long for TIA and I would favor stroke recrudescence as etiology of her presenting symptom
--- DAPT therapy with aspirin and clopidogrel for 21 days and then return to her home
-Encourage psychiatric and psychological evaluation as an outpatient
-Neurology outpatient follow-up with consideration for MoCA, neurotrax, or neuropsychologic testing
-No barriers to discharge from my standpoint, no further monitoring or workup as inpatient
Neuro Assessment/Plan
Assessment
Suspect most likely this was stroke recrudescence given history of sizable previous left posterior MCA ischemic infarction
Patient does endorse some depression and anxiety that she is hoping to pursue further psychiatric and psychological evaluation for
Duration of symptoms seems a bit too long for TIA but this would remain in the differential diagnosis as has significant stroke risk factors
MRI shows old left MCA stroke
MRA head neck mild left carotid stenosis, appears 30-40% by radiology measurement
Carotid ultrasound consistent with less than 50% stenosis bilaterally
Subjective/Objective
Subjective Data
Date of Service: June 21, 2023
No acute events, feels like speech is better, in total duration she feels symptoms were more than 1 day
Objective Data
Vital Signs
Temp Pulse Resp BP Pulse Ox
97.5 F 65 16 121/66 95
06/21/23 03:11 06/21/23 03:11 06/21/23 03:11 06/21/23 03:11 06/21/23 03:11
PT 13.6 Sec (11.4-14.6) 06/19/23 16:49
INR 1.04 06/19/23 16:49
Sodium 134 mmol/L (135-145) L 06/20/23 03:05
Potassium 2.9 mmol/L (3.5-5.1) L 06/20/23 03:05
BUN 13 mg/dl (7-17) 06/20/23 03:05
Glucose 212 mg/dl (70-99) H 06/20/23 03:05
Calcium 9.2 mg/dl (8.4-10.2) 06/20/23 03:05
LDL Cholesterol, Calc 49 mg/dl 06/20/23 03:05
Vitamin B12 > 1000 pg/ml (239-931) H 06/20/23 03:05
Patient Allergies
adhesive tape Allergy (Verified 04/30/23 13:50)
Rash
Review of Systems
-
History Source: Patient
All other systems: Reviewed and negative
Constitutional: No Symptoms
EENT: No Symptoms Reported
Respiratory: No Symptoms
Cardiac: No Symptoms
Abdomen/GI: No Symptoms
Genitourinary: No Symptoms
Musculoskeletal: No Symptoms
Skin: No Symptoms
Neuro: Speech Problem and See existing Neuro Note
Endocrine: No Symptoms
Hematologic / Lymphatic: No Symptoms
Allergy / Immunology: No Symptoms
Physical Exam
-
General: Comfortable
Eyes: No Ptosis
HEENT: Normocephalic
Neck: No Bruits Bilaterally
Respiratory: Clear to Auscultation
Cardiac: Regular Rhythm
GI: Normal Bowel Sounds
Skin: Unremarkable
Extremities: No Clubbing
Psych: Unremarkable
Extended Neurological Exam
Attention Span & Concentration: Awake and Interactive
Memory: Unremarkable
Tremor: Hand Tremor Absent
Involuntary Movement: None
Speech: Quality Unremarkable and Quantity Unremarkable; Negative Expressive Aphasia or Receptive Aphasia
Cranial Nerve II: Left Eye: Pupillary Reactivity Unremarkable and Pupillary Size Unremarkable
Cranial Nerve II: Right Eye: Pupillary Reactivity Unremarkable and Pupillary Size Unremarkable
Cranial Nerves III, IV, : Extraocular Movement: Extraocular Movement Full in all Directions
Cranial Nerve VII: Facial Symmetry: Normal Facial Symmetry
Pronator Drift: No Drift in Upper Extremities
Data Reviewed
-
MRI Head: Report Reviewed and Image Reviewed
MRA Head: Report Reviewed and Image Reviewed
MRA Neck: Report Reviewed and Image Reviewed
Labs: Report Reviewed
[2023-06-21 07:58] VITALS: BP 111/55
[2023-06-21 08:02] LABS: Hematocrit 41.3 % (37.0-47.0); Hemoglobin 14.5 g/dL (12.0-16.0); Mean Corp Hgb Conc. 35.1 g/dL (33.0-37.0); Mean Corpuscular Hgb 29.6 pg (27.0-31.0); Mean Corpuscular Volume 84.3 fL (81.0-99.0); Mean Platelet Volume 9.8 fL (7.4-10.4); Platelet Count 297 10^3/uL (130-400); Red Cell Dist. Width 14.1 % (11.5-14.5); White Blood Cell Count 7.7 10^3/uL (4.8-10.8)
[2023-06-21 08:54] LABS: Blood Urea Nitrogen 12 mg/dl (7-17); Calcium 9.5 mg/dl (8.4-10.2); Carbon Dioxide 19 mmol/L (22-30); Chloride 105 mmol/L (98-107); Estimated Creatinine Clearance 91 ml/min; Glucose 141 mg/dl (70-99); Magnesium 2.2 mg/dl (1.6-2.3); Potassium 4.1 mmol/L (3.5-5.1); Sodium 137 mmol/L (135-145); eGFR > 60.00
[2023-06-21] MEDS: DIOVAN 80 MG PO (09:58)
[2023-06-21] MEDS: WELLBUTRIN XL (24 hour extended release) 450 MG PO (09:58)
[2023-06-21] MEDS: LOW STRENGTH ASPIRIN 81 MG PO (09:58)
[2023-06-21] MEDS: BACTRIM DS 800 MG/160 MG 1 TABLET PO (09:58)
[2023-06-21] MEDS: VITAMIN D3 (cholecalciferol) 50 MCG PO (09:58)
[2023-06-21] MEDS: PLAVIX 75 MG PO (09:59)
[2023-06-21] MEDS: LIPITOR 40 MG PO (09:59)
[2023-06-21] MEDS: LYRICA 150 MG PO (09:59)
[2023-06-21] MEDS: JARDIANCE 25 MG PO (09:59)
[2023-06-21] MEDS: LEXAPRO 20 MG PO (09:59)
[2023-06-21] MEDS: HEPARIN 5000 UNITS SC (09:59)
[2023-06-21] MEDS: PROTONIX 40 MG PO (09:59)
[2023-06-21] MEDS: THIAMINE INJECTION 100 MG IV (09:59)
[2023-06-21] MEDS: NOVOLOG FLEXPEN-LOW RESISTANCE 1 UNITS SC (10:11)
[2023-06-21 10:16] LABS: Glucose - Point of Care 156 mg/dl (70-99)
--- NOTE | 2023-06-21 10:47 | PTOTSP ---
Video Swallow Study
Patient presents with WFL oral and mild pharyngeal stage of swallowing. No aspiration occurred. There was moderate residue in the valleculae with solids which reduced with a thin liquid wash. Esophageal sweep was concerning for delayed emptying
per discussion with ROXANA. Please see patient care note for full details of penetration/aspiration and swallowing physiology.
Recommend:
1. Regular, Thin Liquids (with patient selecting soft/moist foods)
2. Strategies: upright to 90 degrees, alternate sips/bites to assist with pharyngeal clearance, remain upright for 30 minutes after eating/drinking as a reflux precaution
3. Medications - whole in puree
4. Dysphagia tx for instruction in compensations and pharyngeal exercises
5. Outpatient ENT consult to assess larynx given dysphonia
6. GI consult given findings on esophageal sweep this session
[2023-06-21 11:55] VITALS: BP 122/80
--- NOTE | 2023-06-21 12:31 | W.PN.HOSP.TC ---
Addendum entered and electronically signed by Alfredo Altman MD 06/21/23 15:38:
[id number]
Original Note:
Today's Communication/Plan
-
DAPT - 3 weeks; then back to plavix
f/u neuro, gi, pcp outpatient
Assessment / Plan
Assessment / Plan
Physical Exam
General: Comfortable and Conversant; anxious
HEENT: Anicteric and Moist mucous membranes
Respiratory: Clear and Non Labored Respirations
Cardiac: S1/S2 and Regular Rhythm
GI: Soft and Non Tender
Rectal: Deferred by Provider
Skin: Warm and Dry
Neuro: Awake, Alert, Oriented, No Motor Deficits and Slurred Speech; No Facial Droop
Psych: Calm
Double Vision and Slurred Speech, possible TIA/CVA versus stroke recrudescence
-Consult Neurology
-Add aspirin - Continue Plavix; cont DAPT for 3 weeks, then cont back on plavix
-Check Brain MRI with Head/Neck MRA - unremarkable for acute pathology or significant stenosis
-Check Hgba1c - 7.1 and LDL 49
-Monitor neuro-checks
-F/u ECHO - EF 55-60%
-F/u TSH w/ reflex freet4 - wnl
#URI symptoms
-f/u covid, flu neg
-supportive care
#Dysphagia
-VSE ordered - delayed emptying - no other seen aspiration; can f/u GI outpatient
Recent Urinary Tract Infection
-Continue Bactrim
-ua negative
#Hypokalemia
-monitor and replete
Essential Hypertension, allow for permissive hypertension for 24 hours post onset of symptoms
-Resume BP meds
Hyperlipidemia
-Continue atorvastatin
Diabetes Mellitus, Type II
-Continue Jardiance
Hypothyroidism
-Continue levothyroxine
Depression
-Continue bupropion and escitalopram
GERD
-Continue Protonix
Hx Left Temporoparietal CVA
Hx PFO s/p ASD Closure
DVT proph: HSQ
Code Status: Full Code
More than 30 minutes spent in discharge including
Final examination of the patient
Summarizing hospital stay
Instructions for continuing care to all relevant caregivers
Preparation of discharge records, prescriptions, and referral forms
Total time spent (35 in minutes):
Anticipated Discharge: Today
Subjective/Interval History
-
Date of Service: June 21, 2023
Patient symptoms resolved, MRI unremarkable for any acute pathology or significant stenosis
Objective Data
-
Labs:
Laboratory Results
06/21/23
07:37
WBC 7.7
Hgb 14.5
Hct 41.3
Plt Count 297
Sodium 137
Potassium 4.1 D
Chloride 105
Carbon Dioxide 19 L
BUN 12
Creatinine 0.6
Glucose 141 H
Calcium 9.5
Vital Signs:
Vital Signs
Temp Pulse Resp BP Pulse Ox
97.7 F 72 16 122/80 96
06/21/23 11:55 06/21/23 11:55 06/21/23 11:55 06/21/23 11:55 06/21/23 11:55
I&O
06/20/23 06/21/23 06/22/23
06:59 06:59 06:59
Intake Total 240 / 240
Balance 240 / 240
Review of Systems
-
History Source: Patient
All other systems: Not reviewed unless documented
Data Reviewed
-
CT Scan: Image personally visualized and interpreted and Report Reviewed by me
Labs: Labs Reviewed by me
--- NOTE | 2023-06-21 12:38 | CM ---
met with patient and at bedside.patient is stable for dc home today,she feels speech is betterspeech eval recommends regular diet with thin liquids.mri shows old left mca infarct.patient again declined vn or home physical therapy. to
transport patient home.
--- NOTE | 2023-06-21 12:39 | W.DS.TRANS ---
DC Summary - Escort Patients
-
Discharge Instructions:
Discharge Diagnosis/Procedures TIA v Stroke Recrudesce
Diet Low Cholesterol,Low Fat,Diabetic, Carb
Controlled
Activity As tolerated
Instructions:
Stand-Alone Forms:
Changes to Home Medications: Yes
Discharge Medications:
DC Medications w/original date entered in [facility]
clopidogrel 75 mg tablet 75 mg PO DAILY Heart Disease/Condition 05/10/18
levothyroxine 125 mcg tablet 125 mcg PO DAILY Thyroid 05/10/18
pantoprazole 40 mg tablet,delayed release 40 mg PO DAILY Gastrointestinal Issue 05/10/18
denosumab 60 mg/mL subcutaneous syringe (Prolia) 60 mg SQ [id number] BONE 04/18/20
atorvastatin 40 mg tablet 40 mg PO DAILY High Cholesterol 06/19/23
bupropion HCl 150 mg 24 hr tablet, extended release 450 mg PO DAILY Mental Health/Anxiety 06/19/23
cholecalciferol (vitamin D3) 50 mcg (2,000 unit) tablet 50 mcg PO DAILY Supplement 06/19/23
clobetasol 0.05 % scalp solution 1 applic topical BID PRN skin condition 06/19/23
empagliflozin 25 mg tablet (Jardiance) 25 mg PO DAILY Diabetes 06/19/23
erythromycin 5 mg/gram (0.5 %) eye ointment 1 applic LEFT EYE QID Eye Condition 06/19/23
escitalopram oxalate 10 mg tablet 20 mg PO DAILY Mental Health/Anxiety 06/19/23
loperamide 2 mg capsule 4 mg PO HSPRN PRN diarrhea 06/19/23
multivit with min-folic acid-lutein 400 mcg-250 mcg chewable tablet (Centrum Silver) 4 tab PO QPM Supplement 06/19/23
pregabalin 150 mg capsule 150 mg PO BID Neurological Condition 06/19/23
sulfamethoxazole 800 mg-trimethoprim 160 mg tablet 1 tab PO BID Infection 06/19/23
valsartan 80 mg-hydrochlorothiazide 12.5 mg tablet 1 tab PO DAILY Blood Pressure 06/19/23
aspirin 81 mg chewable tablet (Children's Aspirin) 81 mg PO DAILY 21 days #21 tabs 06/21/23
Home Medication Changes
aspirin 81 mg chewable tablet (Children's Aspirin) 81 mg PO DAILY 21 days #21 tabs 06/21/23
Pending Results: Yes
[2023-06-21 13:31] LABS: Glucose - Point of Care 111 mg/dl (70-99)
[2023-06-21] MEDS: NOVOLOG FLEXPEN-LOW RESISTANCE SC (13:43)
[2023-06-26 18:37] LABS: Vitamin B1, Whole Blood 151 nmol/L (70-180)
== END 2023-06-21 14:27 | disposition home or self-care (01) ==
LOC: 4 WEST ACU 19:39
PROVIDERS: Nurse Practitioner Family; Physician Assistant Medical; ADMITTING PHYSICIAN Internal Medicine; EMERGENCY PHYSICIAN Emergency Medicine; FAMILY PHYSICIAN Internal Medicine; OTHER PHYSICIAN Student in an Organized Health Care Education/Training Program
DX: H53.2 Diplopia (principal); R47.81 Slurred speech; N39.0 Urinary tract infection, site not specified; R13.10 Dysphagia, unspecified; J06.9 Acute upper respiratory infection, unspecified; E03.9 Hypothyroidism, unspecified; J45.909 Unspecified asthma, uncomplicated; E66.9 Obesity, unspecified; E11.9 Type 2 diabetes mellitus without complications; E78.00 Pure hypercholesterolemia, unspecified; I10 Essential (primary) hypertension; F32.A Depression, unspecified; K21.9 Gastro-esophageal reflux disease without esophagitis; Z11.52 Encounter for screening for COVID-19; Z68.29 Body mass index [BMI] 29.0-29.9, adult; Z79.82 Long term (current) use of aspirin; Z79.84 Long term (current) use of oral hypoglycemic drugs; Z79.899 Other long term (current) drug therapy; Z86.73 Personal history of transient ischemic attack (TIA), and cerebral infarction without residual deficits; Z87.74 Personal history of (corrected) congenital malformations of heart and circulatory system; Z79.02 Long term (current) use of antithrombotics/antiplatelets
CPT/HCPCS: 70450; 70544; 70548; 70551; 74230; 80048; 80053; 80061; 81003; 81015; 82140; 82607; 82728; 82746; 82962; 83036; 83735; 84425; 84443; 84484; 85025; 85027; 85610; 86803; 87502; 87811; 92523; 92610; 92611; 93005; 93306; 93880; 97163; 97167; 99285; A9585; G0378

== ENCOUNTER 2023-06-23 11:46 | Emergency (ER) | payer OTHER, SELFPAY ==
[2023-06-23 11:55] VITALS: BP 130/92
[2023-06-23 12:38] LABS: % Basophils 0.9 % (0-2); % Eosinophils 1.7 % (0-6); % Immature Granulocytes 0.5 % (0-0.5); % Lymphocytes 20.3 % (20.5-51.1); % Monocytes 5.1 % (1.7-9.3); % Neutrophils 71.5 % (42.2-75.2); Absolute Basophils 0.1 10^3/uL (0-0.2); Absolute Eosinophils 0.2 10^3/uL (0-0.7); Absolute Immature Granulocytes 0.1 10^3/uL (0-0.05); Absolute Lymphocytes 2.1 10^3/uL (1.2-3.4); Absolute Monocytes 0.5 10^3/uL (0.1-0.6); Absolute Neutrophils 7.3 10^3/uL (1.4-6.5); Hematocrit 44.5 % (37.0-47.0); Hemoglobin 15.7 g/dL (12.0-16.0); Mean Corp Hgb Conc. 35.3 g/dL (33.0-37.0); Mean Corpuscular Hgb 29.2 pg (27.0-31.0); Mean Corpuscular Volume 82.7 fL (81.0-99.0); Mean Platelet Volume 9.7 fL (7.4-10.4); Nucleated Red Blood Cells % 0 %; Platelet Count 339 10^3/uL (130-400); Red Blood Cell Count 5.38 10^6/uL (4.20-5.40); White Blood Cell Count 10.3 10^3/uL (4.8-10.8)
[2023-06-23 12:50] LABS: ALT (SGPT) 30 U/L (0-35); AST (SGOT) 30 U/L (14-36); Albumin 4.8 g/dl (3.5-5.0); Alkaline Phosphatase 69 U/L (38-126); Blood Urea Nitrogen 14 mg/dl (7-17); Carbon Dioxide 16 mmol/L (22-30); Chloride 106 mmol/L (98-107); Glucose 169 mg/dl (70-99); Potassium 5.2 mmol/L (3.5-5.1); Sodium 135 mmol/L (135-145); Total Bilirubin 0.8 mg/dl (0.2-1.3); Total Protein 7.5 g/dl (6.3-8.2); eGFR > 60.00
[2023-06-23 13:01] LABS: Troponin I < 0.012 ng/ml
[2023-06-23 14:59] VITALS: BP 141/82; BMI 26.3
[2023-06-23] MEDS: TORADOL 15 MG IV (15:33)
[2023-06-23] MEDS: BENADRYL 25 MG IV (15:34)
[2023-06-23] MEDS: COMPAZINE 10 MG IV (15:34)
[2023-06-23] MEDS: IMITREX 50 MG PO (15:44)
[2023-06-23 16:57] LABS: D-Dimer 0.28 ug/mlFEU (0.00-0.50)
--- NOTE | 2023-06-23 17:14 | EDRN ---
the pt is resting in stretcher in the lowest position, side rails up x2, call multani within reach, HOB elevated, no c/o chest pain, no c/o SOB, no c/o headache, no c/o N/V, VS WNL, will continue to monitor the pt closely
--- NOTE | 2023-06-23 17:37 | ED.GENMED ---
History of Present Illness
General
Chief Complaint: Weakness
Source: patient, records and spouse
Exam Limitations: none
Time Seen by Provider: 06/23/23 14:33
Nursing documentation reviewed up to this point in time: agreed with
Travel History
Have you had any contact with someone who has COVID-19?: No
Do you have any symptoms of coronavirus? Fever > 100 degrees, chills, cough, shortness of breath, sore throat, loss of taste or smell, muscle aches, or headache?: No
History of Present Illness
History of Present Illness:
72-year-old female presents emergency department due to headache weakness and disorientation. She also has felt nauseous. Recent admission for slurred speech and double vision.
Past History
Past History
ED Past Medical History: CVA, HTN, Hypercholesterolemia and Hypothyroidism
ED Past Surgical History: Orthopedic
Social History
Tobacco: Non-smoker
Alcohol: None
Drug: None
Personal:
Living: with family
Review of Systems
Review of Systems
Allergies reviewed?: Yes
All Other Systems: Not applicable
Constitutional: Reports no symptoms
EENT: Reports no symptoms
Respiratory: Reports trouble breathing
Cardiac: Reports no symptoms
ABD/GI: Reports no symptoms
: Reports no symptoms
Musculoskeletal: Reports no symptoms
Skin: Reports no symptoms
Neurological: Reports headache
Endocrine: Reports no symptoms
Hematologic/Lymphatic: Reports no symptoms
Psychiatric: Reports no symptoms
Phy Exam
Physical Exam
Physical Exam:
Physical Exam
General: no apparent distress, not acutely ill
Neck: supple. no meningeal signs. normal posterior pharynx
Heart: s1/s2 regular rate and rhythm, no murmur. equal radial
pulses.
HEENT: Pupils equal round reactive to light, EOMI
Lungs: no acute respiratory distress. clear bilaterally
Abdomen: normal bowel sounds. not tender. no CVAT
Neuro: alert and oriented. no focal neurological deficits cranial nerves II through XII intact
Skin: no rash
Psychiatric: well kept. interactive and cooperative
Extremities: no edema. no calf tenderness. negative homans. good distal pulses
Course
Orders/Labs/Results
Orders:
Orders
06/23/23 12:26
Complete Blood Count/With Diff Urgent
Comprehensive Metabolic Panel Urgent
Troponin I Urgent
06/23/23 14:46
IV Insert/Care/Rem.- Treatment PRN
Diphenhydramine [Benadryl] 25 mg IV NOW STA
Ketorolac [Toradol] 15 mg IV NOW STA
Prochlorperazine [Compazine] 10 mg IV NOW STA
06/23/23 15:30
Sumatriptan Succinate [Imitrex] 50 mg PO NOW STA
06/23/23 16:30
D-Dimer Urgent
Abnormal Lab Results
06/23/23
12:26
Abs Immat Gran (auto) 0.1 H 10^3/uL
(0-0.05)
Absolute Neuts (auto) 7.3 H 10^3/uL
(1.4-6.5)
Lymphocytes % 20.3 L %
(20.5-51.1)
Potassium 5.2 H D mmol/L
(3.5-5.1)
Carbon Dioxide 16 L mmol/L
(22-30)
Glucose 169 H mg/dl
(70-99)
06/23/23 12:26
06/23/23 12:26
Vital Signs
Initial and Last Documented VS:
Initial Vital Signs
Temp Pulse Resp BP Pulse Ox
98.0 F 84 18 130/92 97
06/23/23 11:55 06/23/23 11:55 06/23/23 11:55 06/23/23 11:55 06/23/23 11:55
Last Documented Vital Signs
Temp Pulse Resp BP Pulse Ox
97.6 F 80 27 141/82 96
06/23/23 14:59 06/23/23 16:15 06/23/23 16:15 06/23/23 14:59 06/23/23 16:15
MDM/Problems Addressed
Differential Diagnosis Includes:
Migraine, CVA
MDM/Problems Addressed:
72-year-old female with headache weakness and disorientation. No neurologic deficits on exam. Do not suspect CVA. Discussed with Dr. Villalobos, who suspect these are residual symptoms from a prior CVA. Stable for discharge. Patient improved after
IV Toradol and p.o. Imitrex.
Chronic conditions affecting care: Neurological disorder (Prior CVA)
*Pulse Oximetry
Patient hypoxic: no
*EKG
Interpreted by ED Provider?: NA
*Assembly Repairer Interpretation
Rate: Assembly Repairer- N/A
*Critical Care Note
Total Time (30-74mins, 75-104mins- exclusive of procedures): Not Applicable
Data Reviewed
Review of Other/Old Records Reveals: Progress Notes (Recent hospital stay for possible CVA versus residual stroke symptoms)
Source: records
Patient Management
Social determinants of health affecting care: Living situation
Discussion with other providers: Genetic Technologist (Neurology, Dr. Villalobos)
Escalation/DeEscalation of care consider admission/obs:
Admit not indicated
ED Attending Note
-
Portions of this chart may have been created with voice recognition software.� Occasional wrong word or��sound alike� substitutions may have occurred due to the inherent limitations of voice recognition software.
Discharge Plan
Departure
Patient Disposition: Home (Routine Discharge)
Date of Disposition: 06/23/23
Time of Disposition: 17:39
Patient with high blood pressure during this ER visit?: Yes
Condition: Good
Discharge Problem:
Headache
Instructions: Headache, Adult, Generalized Weakness (DC), BLOOD PRESSURE
Prescriptions:
No Action
Prolia 60 MG/ML syringe
60 mg SQ [id number]
Patient Comments:
06/19/2023, last dose was in March per pt.
atorvastatin 40 mg Tablet
40 mg PO DAILY
loperamide 2 mg Capsule
4 mg PO HSPRN PRN (Reason: diarrhea)
sulfamethoxazole-trimethoprim 800-160 mg Tablet
1 tab PO BID
Patient Comments:
06/19/2023, pt. filled this med on 06/17/2023 and is instructed to take one tablet BID for 8 days.
valsartan-hydrochlorothiazide 80-12.5 mg Tablet
1 tab PO DAILY
erythromycin 5 mg/gram (0.5 %) Ointment
1 applic LEFT EYE QID
Patient Comments:
06/19/2023, pt. filled this med. on 06/12/2023 and is instructed to apply to left eye QID for 7 days.
clobetasol 0.05 % Solution
1 applic TOPICAL BID PRN (Reason: skin condition)
escitalopram oxalate 10 mg Tablet
20 mg PO DAILY
bupropion HCl 150 mg Tablet Extended Release 24 Hr
450 mg PO DAILY
pregabalin 150 mg Capsule
150 mg PO BID
cholecalciferol (vitamin D3) 50 mcg (2,000 unit) Tablet
50 mcg PO DAILY
Centrum Silver 400-250 mcg Tablet,Chewable
4 tab PO QPM
Jardiance 25 mg Tablet
25 mg PO DAILY
aspirin [Children's Aspirin] 81 mg Tablet,Chewable
81 mg PO DAILY 21 Days Qty: 21 0RF
clopidogrel 75 MG tablet
75 mg PO DAILY
pantoprazole 40 MG tablet,delayed release (DR/EC)
40 mg PO DAILY
levothyroxine 125 MCG tablet
125 mcg PO DAILY
Referrals:
Radha Nesbitt MD [Family Provider] -
Interventions
Interventions:
*Risk Screen - Suicide Last Done: 06/23/23 14:59
*General Assessment Last Done: 06/23/23 11:55
*Neglect/Abuse Screening Last Done: 06/23/23 14:59
ED- Fall Risk Assessment Last Done: 06/23/23 14:59
*ED COVID-19 Vaccine History Last Done: 06/23/23 11:55
ED- Cardiac Assessment Last Done: 06/23/23 14:59
ED- Neurological Assessment Last Done: 06/23/23 14:59
ED- Pulmonary Assessment Last Done: 06/23/23 14:59
Discharge Date and Time
Print Language: CHINESE
== END 2023-06-23 17:49 | disposition home or self-care (01) ==
LOC: EMR 11:46
PROVIDERS: Emergency Medicine; EMERGENCY PHYSICIAN Emergency Medicine; FAMILY PHYSICIAN Internal Medicine
DX: R51.9 Headache, unspecified (principal); R53.1 Weakness; R41.0 Disorientation, unspecified; I10 Essential (primary) hypertension; Z86.73 Personal history of transient ischemic attack (TIA), and cerebral infarction without residual deficits
CPT/HCPCS: 99284; 96374; 96375 ×2; 80053; 84484; 85025; 85379

== ENCOUNTER → 2024-03-16 06:56 | Outpatient (REF) | payer OTHER, SELFPAY | LOC: MRI 06:56 | PROVIDERS: ATTENDING PHYSICIAN Physical Medicine & Rehabilitation Pain Medicine; FAMILY PHYSICIAN Internal Medicine | DX: M47.817 Spondylosis without myelopathy or radiculopathy, lumbosacral region (principal) | CPT/HCPCS: 72148 ==

== ENCOUNTER 2024-04-23 11:20 | Outpatient (RCR) | payer OTHER, SELFPAY | END 2024-04-23 23:59 | disposition home or self-care (01) | LOC: RPT 11:20 | PROVIDERS: ATTENDING PHYSICIAN Physical Medicine & Rehabilitation Pain Medicine; FAMILY PHYSICIAN Internal Medicine | DX: M54.51 Vertebrogenic low back pain (principal); M62.81 Muscle weakness (generalized); Z73.6 Limitation of activities due to disability; R26.2 Difficulty in walking, not elsewhere classified; G89.29 Other chronic pain; Z96.642 Presence of left artificial hip joint; Z96.652 Presence of left artificial knee joint | CPT/HCPCS: 97110; 97112; 97162 ==

== ENCOUNTER → 2024-04-28 11:53 | Outpatient (REF) | payer OTHER, SELFPAY | LOC: WDC 11:53 | PROVIDERS: ATTENDING PHYSICIAN Internal Medicine | DX: Z12.31 Encounter for screening mammogram for malignant neoplasm of breast (principal) | CPT/HCPCS: 77063; 77067 ==

== ENCOUNTER 2024-05-21 08:55 | Outpatient (RCR) | payer OTHER, SELFPAY | END 2024-05-21 23:59 | disposition home or self-care (01) | LOC: RPT 08:55 | PROVIDERS: ATTENDING PHYSICIAN Physical Medicine & Rehabilitation Pain Medicine; FAMILY PHYSICIAN Internal Medicine | DX: M54.51 Vertebrogenic low back pain (principal); M62.81 Muscle weakness (generalized); Z73.6 Limitation of activities due to disability; R26.2 Difficulty in walking, not elsewhere classified; G89.29 Other chronic pain; Z96.642 Presence of left artificial hip joint; Z96.652 Presence of left artificial knee joint; R29.6 Repeated falls | CPT/HCPCS: 97010; 97110; 97112 ==

== ENCOUNTER 2024-06-17 08:52 | Outpatient (RCR) | payer OTHER, SELFPAY | END 2024-06-17 23:59 | disposition home or self-care (01) | LOC: RPT 08:52 | PROVIDERS: ATTENDING PHYSICIAN Physical Medicine & Rehabilitation Pain Medicine; FAMILY PHYSICIAN Internal Medicine | DX: M54.51 Vertebrogenic low back pain (principal); M62.81 Muscle weakness (generalized); Z73.6 Limitation of activities due to disability; R26.2 Difficulty in walking, not elsewhere classified; G89.29 Other chronic pain; Z96.642 Presence of left artificial hip joint; Z96.652 Presence of left artificial knee joint; R29.6 Repeated falls | CPT/HCPCS: 97110; 97112 ==

== ENCOUNTER → 2024-08-27 14:31 | Outpatient (REF) | payer OTHER, SELFPAY | LOC: DHSLP 14:31 | PROVIDERS: ATTENDING PHYSICIAN Internal Medicine | DX: G47.33 Obstructive sleep apnea (adult) (pediatric) (principal) | CPT/HCPCS: 95810 ==